=== PATIENT | male | born 1970 | race Two or more races ===

== ENCOUNTER 2025-06-25 03:33 | Inpatient (IN) | payer OTHER ==
[~2025-06-25] VITALS: Ht 167.6 cm; Wt 99.8 kg
[2025-06-25] VITALS (11 sets, daily range): BP systolic 87–112; BP diastolic 57–71; TEMP 97.8–98.8; O2SAT 96–98
[2025-06-25] MEDS ORDERED: ONDANSETRON HCL/PF 4 MG/2 ML VIAL ONE (03:53)
[2025-06-25] MEDS: IV NS 0.9% 1,000 ML BAG IV ONE (04:12)
[2025-06-25] MEDS: ONDANSETRON HCL/PF 4 MG/2 ML VIAL IVP ONE (04:13)
[2025-06-25 04:21] LABS: PLATELET COUNT (AUTO) 150 K/uL (150-450); RED BLOOD CELL COUNT(AUTO) 2.04 MIL/uL (4.5-6.0); RED CELL DISTRIBUTION WIDTH 15.4 % (11.5-15.0); WHITE BLOOD COUNT (AUTO) 12.3 K/uL (4.3-11.0)
[2025-06-25 04:40] LABS: CALCIUM, SERUM 7.7 mg/dL (8.5-10.1); CREATININE 1.1 mg/dL (0.6-1.3); SODIUM SERUM 143 mmol/L (136-145); UREA NITROGEN, BLOOD 64 mg/dL (7-18)
[2025-06-25 04:45] LABS: ASPARTATE AMINOTRANSFERASE 10 U/L (15-37); TOTAL PROTEIN, SERUM 4.0 g/dL (6.4-8.2)
[2025-06-25 04:59] LABS: OCCULT BLOOD STOOL POSITIVE (NEGATIVE)
[2025-06-25] MEDS ORDERED: INSULIN REGULAR, HUMAN 100 UNIT/ML 10 ML VIAL ONE (05:00)
[2025-06-25] MEDS: INSULIN REGULAR, HUMAN 100 UNIT/ML 3 ML VIAL IV ONE (05:03)
[2025-06-25 05:11] LABS: INR 1.14 (0.91-1.10)
[2025-06-25 05:20] LABS: LYMPHOCYTES % (MANUAL) 24 % (16-48); MONOCYTES % (MANUAL) 1 % (0-11.0); NEUTROPHILS % (MANUAL) 74 (42-76); PLATELET ESTIMATE ADEQUATE; REACTIVE LYMPHOCYTES 1 % (0-0)
[2025-06-25] MEDS ORDERED: ONDANSETRON HCL/PF 4 MG/2 ML VIAL IVP PRN (06:00)
[2025-06-25] MEDS ORDERED: DEXTROSE 50%-WATER 50 ML DISP.SYRIN IV PRN (06:00)
[2025-06-25] MEDS ORDERED: PANTOPRAZOLE 80 MG in IV NS 0.9% 500 ML IV PRN ×2 (06:00→09:30)
[2025-06-25] MEDS ORDERED: IV NS 0.9% 1,000 ML IV PRN (06:00)
[2025-06-25] MEDS ORDERED: IV NS 0.9% 1,000 ML IV SCH (06:00)
[2025-06-25] MEDS ORDERED: SIMV-49 PO (08:43)
[2025-06-25] MEDS ORDERED: HYDR-3980 MT (08:43)
[2025-06-25] MEDS ORDERED: LOSA25TA27 PO (08:43)
[2025-06-25] MEDS: IV NS 0.9% 1,000 ML IV PRN (08:50)
[2025-06-25] MEDS: PANTOPRAZOLE 40 MG VIAL IV SCH (14:35)
[2025-06-25] MEDS: BLOOD SUGAR DIAGNOSTIC 1 EACH STRIP IN SCH (14:41)
[2025-06-25] MEDS: INSULIN REGULAR, HUMAN 100 UNIT/ML 3 ML VIAL SQ PRN (14:42)
[2025-06-26] VITALS (43 sets, daily range): BP systolic 102–126; BP diastolic 53–84; TEMP 97.9–99; O2SAT 98–100
[2025-06-26 06:44] LABS: PLATELET COUNT (AUTO) 101 K/uL (150-450); RED BLOOD CELL COUNT(AUTO) 2.19 MIL/uL (4.5-6.0); RED CELL DISTRIBUTION WIDTH 15.7 % (11.5-15.0); WHITE BLOOD COUNT (AUTO) 8.5 K/uL (4.3-11.0)
[2025-06-26 07:11] LABS: ASPARTATE AMINOTRANSFERASE 14.0 U/L (15-37); CALCIUM, SERUM 7.4 mg/dL (8.5-10.1); CREATININE 0.8 mg/dL (0.6-1.3); SODIUM SERUM 144.0 mmol/L (136-145); TOTAL PROTEIN, SERUM 3.7 g/dL (6.4-8.2); UREA NITROGEN, BLOOD 24.0 mg/dL (7-18)
[2025-06-26 07:38] LABS: LYMPHOCYTES % (MANUAL) 28 % (16-48); MONOCYTES % (MANUAL) 1 % (0-11.0); NEUTROPHILS % (MANUAL) 71 (42-76)
[2025-06-26 07:39] LABS: PLATELET ESTIMATE DECREASED
[2025-06-26] MEDS: PANTOPRAZOLE 80 MG in IV NS 0.9% 100 ML IV ONE (13:25)
[2025-06-26] MEDS: PANTOPRAZOLE 80 MG in IV NS 0.9% 500 ML IV SCH (13:53)
[2025-06-27] VITALS (38 sets, daily range): BP systolic 98–136; BP diastolic 55–99; TEMP 98–98.8; O2SAT 94–100
[2025-06-27 04:57] LABS: PLATELET COUNT (AUTO) 84 K/uL (150-450); RED BLOOD CELL COUNT(AUTO) 3.30 MIL/uL (4.5-6.0); RED CELL DISTRIBUTION WIDTH 17.4 % (11.5-15.0); WHITE BLOOD COUNT (AUTO) 9.1 K/uL (4.3-11.0)
[2025-06-27 05:05] LABS: CALCIUM, SERUM 7.5 mg/dL (8.5-10.1); CREATININE 0.7 mg/dL (0.6-1.3); SODIUM SERUM 144.0 mmol/L (136-145); UREA NITROGEN, BLOOD 10.0 mg/dL (7-18)
[2025-06-27 05:51] LABS: LYMPHOCYTES % (MANUAL) 18 % (16-48); MONOCYTES % (MANUAL) 4 % (0-11.0); NEUTROPHILS % (MANUAL) 78 (42-76); PLATELET ESTIMATE DECREASED
[2025-06-27] MEDS: SUCRALFATE 1 G TABLET PO SCH (17:23)
[2025-06-28] VITALS (8 sets, daily range): BP systolic 118–133; BP diastolic 74–92; TEMP 97.9–98.4; O2SAT 94–100
[2025-06-28 05:08] LABS: PLATELET COUNT (AUTO) 93 K/uL (150-450); RED BLOOD CELL COUNT(AUTO) 3.23 MIL/uL (4.5-6.0); RED CELL DISTRIBUTION WIDTH 16.8 % (11.5-15.0); WHITE BLOOD COUNT (AUTO) 6.1 K/uL (4.3-11.0)
[2025-06-28 05:13] LABS: CALCIUM, SERUM 8.1 mg/dL (8.5-10.1); CREATININE 0.7 mg/dL (0.6-1.3); SODIUM SERUM 146.0 mmol/L (136-145); UREA NITROGEN, BLOOD 5.0 mg/dL (7-18)
[2025-06-28 05:41] LABS: NEUTROPHILS % (MANUAL) 78 (42-76)
[2025-06-28 05:42] LABS: LYMPHOCYTES % (MANUAL) 13 % (16-48); MONOCYTES % (MANUAL) 9 % (0-11.0); PLATELET ESTIMATE DECREASED
[2025-06-28] MEDS ORDERED: POTASSIUM CL. PREMIX PERIPHER. 50 ML IV SCH (10:00)
[2025-06-28] MEDS: POTASSIUM CHLORIDE 20 MEQ TAB.PRT.SR PO ONE (10:59)
[2025-06-28] MEDS ORDERED: SUCR1TAB31 PO (13:16)
[2025-06-28] MEDS ORDERED: PANT40TA2 PO (13:16)
== END 2025-06-28 14:54 | disposition home health service (06) | DRG 241 ==
LOC: ER 03:38 → TELE 05:51 → ICU 06-26 13:03 → TELE1 06-28 06:31 → MEDSG1 06-28 08:44
PROVIDERS: ADMIT Nurse Practitioner Acute Care; ATTEND Nurse Practitioner Acute Care
PROC: 30233N1 Transfusion of Nonautologous Red Blood Cells into Peripheral Vein, Percutaneous Approach (ICD-10-PCS; 2025-06-25)
PROC: 0DB68ZX Excision of Stomach, Via Natural or Artificial Opening Endoscopic, Diagnostic (ICD-10-PCS; 2025-06-26)
PROC: 0W3P8ZZ Control Bleeding in Gastrointestinal Tract, Via Natural or Artificial Opening Endoscopic (ICD-10-PCS; principal; 2025-06-26 13:30)
DX: K26.0 Acute duodenal ulcer with hemorrhage (principal); E44.0 Moderate protein-calorie malnutrition; E11.65 Type 2 diabetes mellitus with hyperglycemia; K29.70 Gastritis, unspecified, without bleeding; D62 Acute posthemorrhagic anemia; E66.9 Obesity, unspecified; I10 Essential (primary) hypertension; E88.09 Other disorders of plasma-protein metabolism, not elsewhere classified; E78.5 Hyperlipidemia, unspecified; R55 Syncope and collapse; Z91.81 History of falling; Z68.35 Body mass index [BMI] 35.0-35.9, adult; K20.90 Esophagitis, unspecified without bleeding; Z71.3 Dietary counseling and surveillance; R63.4 Abnormal weight loss; Z87.442 Personal history of urinary calculi; Z87.891 Personal history of nicotine dependence; Z96.653 Presence of artificial knee joint, bilateral
CPT/HCPCS: 36415; 70450-TC; 71045-TC; 71250-TC; 80048-TC; 80076-TC; 82272-TC; 82962-TC; 84484-TC; 85027-TC; 85730-TC; 86850-TC; 87081-TC; A4223; G0378; J1815; J2405; J2470; J2704; J3490; J7030; J7040; J7050; P9016